=== PATIENT | female | born 1975 | race Caucasian/White ===

== ENCOUNTER 2016-07-25 17:32 | Emergency (ER) | payer BC, OTHER ==
[~2016-07-25] VITALS: Ht 165.1 cm; Wt 64.7 kg
[~2016-07-25 17:32] MED LIST: ALPR-411 PO; ESZO1TAB6 PO; OXYC-57 PO
[2016-07-25 17:36] VITALS: TEMP 36.8; Ht 165.1 cm; Wt 64.7 kg
--- NOTE | 2016-07-25 17:53 | EMERGENCY ROOM VISIT NOTE ---
History Report prepared by Susana: Antoni Torres Under the Supervision of: Clay MonacoO. First contact with patient: 17:42 Chief Complaint: ABDOMINAL PAIN Stated Complaint: L SIDE LOWER ABD PAIN History of Present Illness The patient is a 40 year old female who presents to the Emergency Room with complaints of constant left lower abdominal pain that started today. The pain is worse with movement. She has not taken anything for pain. The pain does not radiate to her back. The patient has a history of ovarian cysts on the left side , which felt the same as the pain she is complaining of today. The patient states that she had a cyst on the left ovary that was "the size of a baby's head." She denies fevers, chills, cough cold or flu symptoms, changes in urinary or bowel habits, or abnormal vaginal discharge. The patient is s/p partial hysterectomy. The patient was sexually active last night with her and had no pain during intercourse. She denies recent travel or strenuous exercise. The patient has adverse reactions to morphine and Percocet. Source of History: patient Onset: today Position: abdomen (LLQ) Timing: constant Modifying Factors (Worsening): movement Associated Symptoms: No fevers, No chills, No cough, No back pain Review of Systems See HPI for pertinent positives & negatives. A total of 10 systems reviewed and were otherwise negative. Past Medical & Surgical Medical Problems: (1) Hx of breast reduction Surgical Problems: (1) Hx of appendectomy (2) Hx of section (3) Hx of hysterectomy Family History No pertinent family history Social History Smoking Status: Former Smoker Marital Status: Housing Status: lives with family Occupation Status: employed Current/Historical Medications Scheduled Sertraline (Zoloft), 75 MG PO DAILY Zolpidem Tartrate (Ambien), 5 MG PO HS Scheduled PRN Alprazolam (Xanax), 0.5 MG PO Q6H PRN for ANXIETY Hydrocodone/Acetaminophen 5MG/325MG ([place] 5MG/325MG), 1-2 TABS PO Q6H PRN for Pain Allergies Coded Allergies: Acetaminophen (Verified Allergy, Severe, "VIOLENT VOMITTING"-"SHAKE UNCONTROLLABLY", 07/25/16) Oxycodone (Verified Allergy, Severe, "VIOLENT VOMITTING"-"SHAKE UNCONTROLLABLY", 07/25/16) Penicillins (Verified Allergy, Severe, ANAPHYLAXIS, 07/25/16) Morphine (Verified Allergy, Intermediate, HIVES, 07/25/16) Physical Exam Vital Signs Date Time Temp Pulse Resp B/P (MAP) Pulse Ox O2 Delivery O2 Flow Rate FiO2 07/25/16 20:49 65 18 98/59 97 Room Air 07/25/16 18:59 88 18 126/78 99 Room Air 07/25/16 17:36 36.8 88 18 133/89 99 Room Air Physical Exam GENERAL: Mild to moderate distress, sitting with knees flexed for comfort. EYE EXAM: normal conjunctiva. OROPHARYNX: no exudate, no erythema, lips, buccal mucosa, and tongue normal and mucous membranes are moist NECK: supple, no nuchal rigidity, no adenopathy, non-tender LUNGS: Clear to auscultation. Normal chest wall mechanics HEART: no murmurs, S1 normal and S2 normal ABDOMEN: There is left lower quadrant tenderness to palpation. BACK: Back is symmetrical on inspection and there is no deformity, no midline tenderness, no CVA tenderness. SKIN: no rashes and no bruising UPPER EXTREMITIES: upper extremities are grossly normal. LOWER EXTREMITIES: No pitting edema. NEURO EXAM: Normal sensorium, cranial nerves II-XII grossly intact, normal speech, no gross weakness of arms, no gross weakness of legs. Gross sensation intact. Medical Decision & Procedures ER Provider Diagnostic Interpretation: Radiology results have been interpreted by the radiologist and reviewed by me. PELVIC ULTRASOUND, TRANSABDOMINAL AND TRANSVAGINAL HISTORY: Left lower quadrant pain. COMPARISON: None. FINDINGS: Uterus: Surgically absent. No masses or fluid collections at the vaginal cuff. Right ovary: Normal in size and demonstrates normal color flow. There are few small follicles/cysts. There is also 1.5 x 0.9 cm paraovarian cyst. Left ovary: Normal in size and demonstrates normal color flow. A 2.1 cm slightly complex cyst which favors a corpus luteum. The left ovary was only seen transabdominally. Miscellaneous:No pelvic free fluid. IMPRESSION: 1. Hysterectomy. 2. A 1.5 x 0.9 cm right paraovarian cyst. 3. A 2.1 cm slightly complex cyst within the left ovary. This favors a corpus luteum. Electronically signed by: Guerrero Flores M.D. 07/25/2016 7:05 PM Dictated Date/Time: 07/25/2016 7:02 PM Laboratory Results 07/25/16 17:55 Red Blood Count 4.99, Mean Corpuscular Volume 88.6, Mean Corpuscular Hemoglobin 29.9, Mean Corpuscular Hemoglobin Concent 33.7, Mean Platelet Volume 9.7, Neutrophils (%) (Auto) 57.7, Lymphocytes (%) (Auto) 34.9, Monocytes (%) (Auto) 5.2, Eosinophils (%) (Auto) 1.6, Basophils (%) (Auto) 0.3, Neutrophils # (Auto) 6.71, Lymphocytes # (Auto) 4.06, Monocytes # (Auto) 0.60, Eosinophils # (Auto) 0.19, Basophils # (Auto) 0.03 07/25/16 17:55 Test 07/25/16 17:50 07/25/16 17:55 Urine Color YELLOW Urine Appearance CLEAR (CLEAR) Urine pH 6.5 (4.5-7.5) Urine Specific [place] 1.010 (1.000-1.030) Urine Protein NEG (NEG) Urine Glucose (UA) NEG (NEG) Urine Ketones NEG (NEG) Urine Occult Blood TRACE (NEG) Urine Nitrite NEG (NEG) Urine Bilirubin NEG (NEG) Urine Urobilinogen NEG (NEG) Urine Leukocyte Esterase NEG (NEG) Urine WBC (Auto) 0 /hpf (0-5) Urine RBC (Auto) 0-4 /hpf (0-4) Urine Hyaline Casts (Auto) 1-5 /lpf (0-5) Urine Epithelial Cells (Auto) >30 /lpf (0-5) Urine Bacteria (Auto) 1+ (NEG) White Blood Count 11.62 K/uL (4.8-10.8) Red Blood Count 4.99 M/uL (4.2-5.4) Hemoglobin 14.9 g/dL (12.0-16.0) Hematocrit 44.2 % (37-47) Mean Corpuscular Volume 88.6 fL (80-100) Mean Corpuscular Hemoglobin 29.9 pg (25-34) Mean Corpuscular Hemoglobin Concent 33.7 g/dl (32-36) Platelet Count 228 K/uL (130-400) Mean Platelet Volume 9.7 fL (7.4-10.4) Neutrophils (%) (Auto) 57.7 % Lymphocytes (%) (Auto) 34.9 % Monocytes (%) (Auto) 5.2 % Eosinophils (%) (Auto) 1.6 % Basophils (%) (Auto) 0.3 % Neutrophils # (Auto) 6.71 K/uL (1.4-6.5) Lymphocytes # (Auto) 4.06 K/uL (1.2-3.4) Monocytes # (Auto) 0.60 K/uL (0.11-0.59) Eosinophils # (Auto) 0.19 K/uL (0-0.5) Basophils # (Auto) 0.03 K/uL (0-0.2) RDW Standard Deviation 43.2 fL (36.4-46.3) RDW Coefficient of Variation 13.4 % (11.5-14.5) Immature Granulocyte % (Auto) 0.3 % Immature Granulocyte # (Auto) 0.03 K/uL (0.00-0.02) Anion Gap 9.0 mmol/L (3-11) Est Creatinine Clear Calc Drug Dose 70.9 ml/min Estimated GFR () 87.3 Estimated GFR (Non- 75.4 BUN/Creatinine Ratio 6.8 (10-20) Calcium Level 8.7 mg/dl (8.5-10.1) Date/Time Source Procedure Growth Status 07/25/16 17:50 Urine , Clean Catch Urine Culture - Final THREE TYPES OF ORGANISMS PRESENT, ALL... Complete Laboratory results per my review. Medications Administered Medications (Trade) Dose Ordered Sig/Richard Route Start Time Stop Time Status Last Admin Dose Admin Hydromorphone HCl (Dilaudid Inj) 0.5 mg NOW STAT IV 07/25/16 17:54 07/25/16 17:56 DC 07/25/16 18:11 0.5 MG Sodium Chloride 1,000 ml @ 999 mls/hr Q1H1M STAT IV 07/25/16 17:54 07/25/16 18:54 DC 07/25/16 18:11 999 MLS/HR Hydromorphone HCl (Dilaudid Inj) 1 mg NOW STAT IV 07/25/16 18:24 07/25/16 18:25 DC 6/20/17 18:33 1 MG Ketorolac Tromethamine (Toradol Inj) 30 mg NOW STAT IV 07/25/16 20:17 07/25/16 20:18 DC 07/25/16 20:48 30 MG Acetaminophen/ Hydrocodone Bitart ([place] 5/325 Tab) 1 tab NOW STAT PO 07/25/16 20:17 07/25/16 20:18 DC 07/25/16 20:48 1 TAB ED Course 1747: The patient was evaluated in room A4b. A complete history and physical exam was performed. 1753: NSS 1000 ml @ 999 mls/hr, Dilaudid 0.5 mg IV. 1823: Dilaudid 1 mg IV. 2009: Reassessed the patient. The patient is still in pain. Updated her on the results and discussed the plan with her. 2017: [place] 5/325 mg PO, Toradol 30 mg IV. Medical Decision Differential diagnoses includes but is not limited to gastritis, peptic ulcer disease, GERD, gallbladder disease, pancreatitis, small bowel obstruction, acute coronary syndrome, pericarditis, ischemic bowel, irritable bowel disease, irritable bowel syndrome, appendicitis, diverticulitis, malignancy, hernia, urinary tract infection, ovarian cyst, torsion, perforation, trauma, infectious. Blood pressure screening: Patient was found to have an elevated blood pressure and was referred to their primary doctor for recheck and further treatment. Medication Reconciliation: I attest that I have personally reviewed the patient' s current medication list. Doubt additional GI/ pathology, sx consistent with prior episodes. Labs reassuring, mild leukocytosis likely from pain. Doubt PID/TOA, no evidence of torsion. Pain improved here. Discussed f/u with aquatics lifeguard, sx to watch/return for , she verbalized understanding and was agreeable with plan. Impression Primary Impression: Abdominal pain Additional Impression: Ovarian cyst Scribe Attestation The scribe's documentation has been prepared under my direction and personally reviewed by me in its entirety. I confirm that the note above accurately reflects all work, treatment, procedures, and medical decision making performed by me. Departure Information Dispostion Home / Self-Care Prescriptions Hydrocodone/Acetaminophen 5MG/325MG ([place] 5MG/325MG) Tab 1-2 TABS PO Q6H Y for Pain, #20 TAB Prov: Leticia Alcaraz, DO 07/25/16 Referrals Shelton Conti D.O. (PCP) Forms Call Back Authorization, HOME CARE DOCUMENTATION FORM, IMPORTANT VISIT INFORMATION Patient Instructions [facility] Additional Instructions Please follow up with QA MANAGER as a precaution given her history of ovarian cysts and significant pain this evening. Please drink plenty of water, you may continue using anti-inflammatories such as Advil or Aleve at home. Please use the pain medications carefully, and do not drive or you're taking them. Please also monitor for constipation which is a common side effect. If you develop any worsening pain, develop fevers or chills, vomiting, vaginal bleeding or abnormal discharge, difficulty urinating, notice a change in your bowel movements, or have any other new concerns, please return the emergency room. Problem Qualifiers Primary Impression: Abdominal pain Abdominal location: left lower quadrant Qualified Codes: R10.32 - Left lower quadrant pain
[2016-07-25] MEDS ORDERED: HYDROmorphone INJ 0.5 MG/0.5 ML SYR IV STA ×2 (17:54→18:24)
[2016-07-25] MEDS ORDERED: SODIUM CHLORIDE 0.9% 1000ML 1,000 ML IV STA (17:54)
[2016-07-25] MEDS ORDERED: SERT50TA PO (17:59)
[2016-07-25] MEDS ORDERED: ZOLP5TAB PO (17:59)
[2016-07-25 18:09] LABS: BASO % 0.3 %; BASO ABS # 0.03 K/uL (0-0.2); COMPLETE YES; EOS % 1.6 %; HEMATOCRIT 44.2 % (37-47); IG% 0.3 %; LYMPH % 34.9 %; LYMPH ABS # 4.06 K/uL (1.2-3.4); MEAN CELL VOLUME 88.6 fL (80-100); MEAN CORPUSCULAR HEMOGLOBIN 29.9 pg (25-34); MEAN CORPUSCULAR HGB CONC 33.7 g/dl (32-36); MEAN PLATELET VOLUME 9.7 fL (7.4-10.4); MONO % 5.2 %; NEUT % 57.7 %; PLATELET COUNT 228 K/uL (130-400); RED BLOOD COUNT 4.99 M/uL (4.2-5.4); WHITE BLOOD COUNT 11.62 K/uL (4.8-10.8)
[2016-07-25 18:17] LABS: URINE APPEARANCE CLEAR (CLEAR); URINE BILIRUBIN NEG (NEG); URINE COLOR YELLOW; URINE EPITHELIAL CELL AUTO >30 /lpf (0-5); URINE NITRITE NEG (NEG); URINE PH 6.5 (4.5-7.5); UROBILINOGEN NEG (NEG); ZZUR CULT IF INDIC CLEAN CATCH YES
[2016-07-25 18:21] LABS: MANUAL MICROSCOPIC REQUIRED? NO; REVIEW REQ? NO
[2016-07-25 18:28] LABS: BUN/CREATININE RATIO 6.8 (10-20); CALCIUM 8.7 mg/dl (8.5-10.1); CREATININE 0.94 mg/dl (0.60-1.20); POTASSIUM 3.6 mmol/L (3.5-5.1)
--- NOTE | 2016-07-25 19:06 | DIAGNOSTIC IMAGING REPORT ---
PELVIC ULTRASOUND, TRANSABDOMINAL AND TRANSVAGINAL HISTORY: Left lower quadrant pain. COMPARISON: None. FINDINGS: Uterus: Surgically absent. No masses or fluid collections at the vaginal cuff. Right ovary: Normal in size and demonstrates normal color flow. There are few small follicles/cysts. There is also 1.5 x 0.9 cm paraovarian cyst. Left ovary: Normal in size and demonstrates normal color flow. A 2.1 cm slightly complex cyst which favors a corpus luteum. The left ovary was only seen transabdominally. Miscellaneous:No pelvic free fluid. IMPRESSION: 1. Hysterectomy. 2. A 1.5 x 0.9 cm right paraovarian cyst. 3. A 2.1 cm slightly complex cyst within the left ovary. This favors a corpus luteum. Electronically signed by: Guerrero Flores M.D. 07/25/2016 7:05 PM Dictated Date/Time: 07/25/2016 7:02 PM
[2016-07-25] MEDS ORDERED: HYDROCODONE/ACETAMOPHEN 5/325MG TAB PO STA (20:17)
[2016-07-25] MEDS ORDERED: KETOROLAC TROMETHAMINE 30 MG/ML VIAL IV STA (20:17)
[2016-07-25] MEDS ORDERED: HYDR-5688 PO (20:26)
[2016-07-25 20:49] VITALS: BP 98/59; PULSE 65; O2SAT 97
[2016-09-29] MEDS ORDERED: HYDR-5688 PO (13:24)
[2016-09-29] MEDS ORDERED: IBUP600T44 PO (13:24)
== END 2016-07-25 21:10 | disposition home or self-care (01) ==
LOC: C.EDB 17:32 → C.EDA 21:10
DX: R10.32 Left lower quadrant pain (principal); N83.01 Follicular cyst of right ovary; N83.202 Unspecified ovarian cyst, left side; Z90.710 Acquired absence of both cervix and uterus; Z98.890 Other specified postprocedural states; Z87.891 Personal history of nicotine dependence; Z79.899 Other long term (current) drug therapy; Z88.0 Allergy status to penicillin; Z88.5 Allergy status to narcotic agent; Z88.6 Allergy status to analgesic agent

== ENCOUNTER 2016-08-02 18:51 | Emergency (ER) | payer BC, OTHER ==
[~2016-08-02] VITALS: Ht 165.1 cm; Wt 65.0 kg
[~2016-08-02 18:51] MED LIST changes: -ESZO1TAB6 PO; +HYDR-5688 PO; -OXYC-57 PO; +SERT50TA PO; +ZOLP5TAB PO
[2016-08-02 18:56] VITALS: TEMP 36.7; Ht 165.1 cm; Wt 65.0 kg
[2016-08-02] MEDS ORDERED: ONDANSETRON INJ 2 MG/ML 2 ML VIAL IV STA (19:22)
[2016-08-02] MEDS ORDERED: KETOROLAC TROMETHAMINE 30 MG/ML VIAL IV STA (19:22)
[2016-08-02 19:34] LABS: URINE APPEARANCE CLEAR (CLEAR); URINE BILIRUBIN NEG (NEG); URINE COLOR YELLOW; URINE EPITHELIAL CELL AUTO >30 /lpf (0-5); URINE NITRITE NEG (NEG); URINE SPECIFIC GRAVITY 1.013 (1.000-1.030); UROBILINOGEN NEG (NEG)
[2016-08-02 19:39] LABS: MANUAL MICROSCOPIC REQUIRED? NO; REVIEW REQ? NO
[2016-08-02 19:58] LABS: BASO % 0.3 %; BASO ABS # 0.03 K/uL (0-0.2); COMPLETE YES; EOS % 2.8 %; HEMATOCRIT 46.4 % (37-47); IG% 0.2 %; LYMPH % 33.1 %; LYMPH ABS # 3.97 K/uL (1.2-3.4); MEAN CELL VOLUME 86.6 fL (80-100); MEAN CORPUSCULAR HEMOGLOBIN 28.9 pg (25-34); MEAN CORPUSCULAR HGB CONC 33.4 g/dl (32-36); MEAN PLATELET VOLUME 9.4 fL (7.4-10.4); MONO % 5.3 %; NEUT % 58.3 %; PLATELET COUNT 237 K/uL (130-400); RED BLOOD COUNT 5.36 M/uL (4.2-5.4); WHITE BLOOD COUNT 11.98 K/uL (4.8-10.8)
[2016-08-02] MEDS ORDERED: CALC3OIN TOP (20:12)
[2016-08-02] MEDS ORDERED: NAPR500T3 PO (20:12)
[2016-08-02] MEDS ORDERED: ZOLP10TA6 PO (20:12)
[2016-08-02] MEDS ORDERED: ALPR-411 PO (20:12)
[2016-08-02] MEDS ORDERED: ZLF/50 PO (20:12)
[2016-08-02 20:15] LABS: ALT/SGPT 75 U/L (12-78); BLOOD UREA NITROGEN 11 mg/dl (7-18); CALCIUM 9.8 mg/dl (8.5-10.1); CARBON DIOXIDE 27 mmol/L (21-32); CHLORIDE 103 mmol/L (98-107); GLUCOSE 97 mg/dl (70-99); POTASSIUM 4.2 mmol/L (3.5-5.1); SODIUM 136 mmol/L (136-145)
[2016-08-02 20:18] LABS: ALKALINE PHOSPHATASE 101 U/L (45-117); AST/SGOT 45 U/L (15-37)
--- NOTE | 2016-08-02 20:48 | DIAGNOSTIC IMAGING REPORT ---
ABDOMEN AND PELVIS CT WITHOUT CONTRAST CT DOSE: 597.07 mGy.cm HISTORY: lower abd pain eval for stone TECHNIQUE: Multiaxial CT images of the abdomen and pelvis were performed without the use of intravenous and oral contrast according to the standard department stone protocol. COMPARISON STUDY: Pelvic ultrasound 07/25/2016. FINDINGS: The lung bases are clear. No fractures within the visualized osseous structures. The unenhanced liver, spleen, gallbladder, pancreas, adrenal glands, and kidneys are unremarkable. No hydronephrosis. No renal or ureteral stones. Punctate calcification anterior to the right psoas muscle on image 92 appears to be associated with the right ovarian vein. The bladder is unremarkable. Hysterectomy. There is again noted a 2.6 cm slightly complex cyst within the left ovary. Normal right ovary. Suboptimal evaluation for bowel pathology due to the lack of intravenous and oral contrast. However, there is no definite bowel wall thickening or obstruction. The appendix is surgically absent. IMPRESSION: 1. No renal stones or hydronephrosis. 2. No definite bowel wall thickening or obstruction. 3. There is again noted a 2.6 cm slightly complex left ovarian cyst. 4. Hysterectomy. Electronically signed by: Guerrero Flores M.D. 08/02/2016 8:47 PM Dictated Date/Time: 08/02/2016 8:37 PM
[2016-08-02] MEDS ORDERED: HYDROmorphone INJ 1 MG/ML SYR IV STA (21:19)
[2016-08-02 22:27] VITALS: BP 121/84; PULSE 74; O2SAT 98
--- NOTE | 2016-08-02 23:24 | EMERGENCY ROOM VISIT NOTE ---
History Report prepared by Susana: Norma Barone Under the Supervision of: Dr. Allan Chambers M.D. First contact with patient: 19:08 Chief Complaint: PELVIC PAIN Stated Complaint: OVARIAN CYST, PAIN WORSE History of Present Illness The patient is a 40 year old female who presents to the Emergency Room with complaints of persistent pelvic pain starting 1 week ago. She was diagnosed with ovarian cysts 1 week ago. She is still having pain. At that time, she had more pain on her left side. Today at work she started experiencing a sharp pulling and twinging on her right side. She describes her pain as sharp and cramping. She saw her PCP on Sunday and has been taking naproxen, Tylenol, and hydrocodone to no significant relief. She denies any vomiting, fever, diarrhea, vaginal discharge, vaginal bleeding, problems urinating, or hematuria. She has had a hysterectomy and appendectomy. She still has her gallbladder. Source of History: patient Onset: 1 week ago Position: other (pelvic) Quality: sharp, cramping Timing: other (persistent) Associated Symptoms: No fevers, No vomiting, No diarrhea, No urinary symptoms Note: Pt denies vaginal bleeding, vaginal discharge. Review of Systems See HPI for pertinent positives & negatives. A total of 10 systems reviewed and were otherwise negative. Past Medical & Surgical Medical Problems: (1) Hx of breast reduction Surgical Problems: (1) Hx of appendectomy (2) Hx of section (3) Hx of hysterectomy Family History Cancer Diabetes mellitus Heart disease Hypertension Lung disease Seizures Social History Smoking Status: Never Smoker Marital Status: Housing Status: lives with family Occupation Status: employed Current/Historical Medications Scheduled Calcitriol (Topical) (Vectical), 1 APPLN TOP UD Sertraline HCl (Sertraline HCl), 75 MG PO DAILY Scheduled PRN Alprazolam (Alprazolam), 0.5 MG PO TID PRN for Anxiety Naproxen (Naproxen), 500 MG PO BID PRN for Pain Zolpidem Tartrate (Zolpidem Tartrate), 10 MG PO HS PRN for Sleep Allergies Coded Allergies: Oxycodone (Verified Allergy, Severe, "VIOLENT VOMITTING"-"SHAKE UNCONTROLLABLY", 07/25/16) Penicillins (Verified Allergy, Severe, ANAPHYLAXIS, 07/25/16) Morphine (Verified Allergy, Intermediate, HIVES, 07/25/16) Sulfa Antibiotics (Verified Allergy, Intermediate, Vomiting, 08/02/16) Physical Exam Vital Signs Date Time Temp Pulse Resp B/P (MAP) Pulse Ox O2 Delivery O2 Flow Rate FiO2 08/02/16 22:27 74 18 121/84 98 08/02/16 21:33 84 16 115/73 96 Room Air 08/02/16 19:46 74 16 117/77 96 Room Air 08/02/16 18:56 36.7 80 16 133/88 97 Room Air Physical Exam Constitutional: Vital signs reviewed. Eyes: Pupils are equal round reactive to light. Conjunctiva are noninjected. ENT: Pharynx is clear without erythema or exudate. Mucous membranes are moist. Neck supple without meningeal signs. Respiratory: Clear to auscultation bilaterally. Breath sounds are equal bilaterally. Cardiovascular: Regular rate and rhythm. No rubs or gallops. GI: Soft, nondistended with RLQ tenderness. No guarding. Bowel sounds are present. Musculoskeletal: No peripheral edema. No CVA tenderness. Integumentary: No cyanosis. Neurological: The patient is awake and alert. No focal deficits. Psychiatric: Normal affect. Medical Decision & Procedures ER Provider Diagnostic Interpretation: Radiology results as stated below per my review and the radiologist's interpretation: ABDOMEN AND PELVIS CT WITHOUT CONTRAST CT DOSE: 597.07 mGy.cm HISTORY: lower abd pain eval for stone TECHNIQUE: Multiaxial CT images of the abdomen and pelvis were performed without the use of intravenous and oral contrast according to the standard department stone protocol. COMPARISON STUDY: Pelvic ultrasound 07/25/2016. FINDINGS: The lung bases are clear. No fractures within the visualized osseous structures. The unenhanced liver, spleen, gallbladder, pancreas, adrenal glands, and kidneys are unremarkable. No hydronephrosis. No renal or ureteral stones. Punctate calcification anterior to the right psoas muscle on image 92 appears to be associated with the right ovarian vein. The bladder is unremarkable. Hysterectomy. There is again noted a 2.6 cm slightly complex cyst within the left ovary. Normal right ovary. Suboptimal evaluation for bowel pathology due to the lack of intravenous and oral contrast. However, there is no definite bowel wall thickening or obstruction. The appendix is surgically absent. IMPRESSION: 1. No renal stones or hydronephrosis. 2. No definite bowel wall thickening or obstruction. 3. There is again noted a 2.6 cm slightly complex left ovarian cyst. 4. Hysterectomy. Electronically signed by: Guerrero Flores M.D. 08/02/2016 8:47 PM Dictated Date/Time: 08/02/2016 8:37 PM Laboratory Results 08/02/16 19:48 Red Blood Count 5.36, Mean Corpuscular Volume 86.6, Mean Corpuscular Hemoglobin 28.9, Mean Corpuscular Hemoglobin Concent 33.4, Mean Platelet Volume 9.4, Neutrophils (%) (Auto) 58.3, Lymphocytes (%) (Auto) 33.1, Monocytes (%) (Auto) 5.3, Eosinophils (%) (Auto) 2.8, Basophils (%) (Auto) 0.3, Neutrophils # (Auto) 6.99, Lymphocytes # (Auto) 3.97, Monocytes # (Auto) 0.64, Eosinophils # (Auto) 0.33, Basophils # (Auto) 0.03 08/02/16 19:48 Test 08/02/16 19:10 08/02/16 19:48 Urine Color YELLOW Urine Appearance CLEAR (CLEAR) Urine pH 6.0 (4.5-7.5) Urine Specific [place] 1.013 (1.000-1.030) Urine Protein NEG (NEG) Urine Glucose (UA) NEG (NEG) Urine Ketones NEG (NEG) Urine Occult Blood 1+ (NEG) Urine Nitrite NEG (NEG) Urine Bilirubin NEG (NEG) Urine Urobilinogen NEG (NEG) Urine Leukocyte Esterase NEG (NEG) Urine WBC (Auto) 1-5 /hpf (0-5) Urine RBC (Auto) 5-10 /hpf (0-4) Urine Hyaline Casts (Auto) 1-5 /lpf (0-5) Urine Epithelial Cells (Auto) >30 /lpf (0-5) Urine Bacteria (Auto) 1+ (NEG) White Blood Count 11.98 K/uL (4.8-10.8) Red Blood Count 5.36 M/uL (4.2-5.4) Hemoglobin 15.5 g/dL (12.0-16.0) Hematocrit 46.4 % (37-47) Mean Corpuscular Volume 86.6 fL (80-100) Mean Corpuscular Hemoglobin 28.9 pg (25-34) Mean Corpuscular Hemoglobin Concent 33.4 g/dl (32-36) Platelet Count 237 K/uL (130-400) Mean Platelet Volume 9.4 fL (7.4-10.4) Neutrophils (%) (Auto) 58.3 % Lymphocytes (%) (Auto) 33.1 % Monocytes (%) (Auto) 5.3 % Eosinophils (%) (Auto) 2.8 % Basophils (%) (Auto) 0.3 % Neutrophils # (Auto) 6.99 K/uL (1.4-6.5) Lymphocytes # (Auto) 3.97 K/uL (1.2-3.4) Monocytes # (Auto) 0.64 K/uL (0.11-0.59) Eosinophils # (Auto) 0.33 K/uL (0-0.5) Basophils # (Auto) 0.03 K/uL (0-0.2) RDW Standard Deviation 42.8 fL (36.4-46.3) RDW Coefficient of Variation 13.7 % (11.5-14.5) Immature Granulocyte % (Auto) 0.2 % Immature Granulocyte # (Auto) 0.02 K/uL (0.00-0.02) Anion Gap 6.0 mmol/L (3-11) Est Creatinine Clear Calc Drug Dose 66.6 ml/min Estimated GFR () 81.0 Estimated GFR (Non- 69.9 BUN/Creatinine Ratio 11.0 (10-20) Calcium Level 9.8 mg/dl (8.5-10.1) Total Bilirubin 0.2 mg/dl (0.2-1) Direct Bilirubin < 0.1 mg/dl (0-0.2) Aspartate Amino Transf (AST/SGOT) 45 U/L (15-37) Alanine Aminotransferase (ALT/SGPT) 75 U/L (12-78) Alkaline Phosphatase 101 U/L (45-117) Total Protein 7.9 gm/dl (6.4-8.2) Albumin 4.1 gm/dl (3.4-5.0) Lipase 141 U/L (73-393) Laboratory results as reviewed by me. Medications Administered Medications (Trade) Dose Ordered Sig/Richard Route Start Time Stop Time Status Last Admin Dose Admin Ondansetron HCl (Zofran Inj) 4 mg NOW STAT IV 08/02/16 19:22 08/02/16 19:24 DC 08/02/16 19:45 4 MG Ketorolac Tromethamine (Toradol Inj) 10 mg NOW STAT IV 08/02/16 19:22 08/02/16 19:24 DC 08/02/16 19:45 10 MG Hydromorphone HCl (Dilaudid Inj) 0.5 mg NOW STAT IV 08/02/16 21:19 08/02/16 21:20 DC 08/02/16 21:27 0.5 MG ED Course 1909: The patient was evaluated in room C2B. A complete history and physical exam was performed. 1921: Toradol Inj 10 mg IV, Zofran Inj 4 mg IV. 2115: The patient requests something else for pain. 2118: Dilaudid Inj 0.5 mg IV. 2119: Upon reevaluation, the patient appeared to have improvement of her symptoms. I discussed angle's findings with her and advised her to follow up with gynecology. She verbalized agreement of the treatment plan. She was discharged home. Medical Decision This is a 40-year-old female who presents with lower abdominal pain. Differential diagnosis includes ovarian cyst, torsion, kidney stone, UTI, pyelonephritis, irritable bowel syndrome, mass. I did perform a limited focused review of portions of the patient's old chart on the electronic medical record. The patient was here July 25 for lower abdominal pain on the left side. Pelvic ultrasound showed a right paraovarian cyst and a complex cyst in the left ovary. Medication Reconciliation: I attest that I have personally reviewed the patient' s current medication list. Blood Pressure Screening: Patient was found to have an elevated blood pressure and was referred to their primary doctor for recheck and further treatment. I did evaluate the patient as noted above. IV access was established. I did treat the patient with Zofran and Toradol IV. She did have persistent pain and was given Dilaudid 0.5 mg IV. I did order and personally review the patient's urine analysis as described above. I did order and review the patient's blood work as noted in the electronic medical record. Her white blood cell count is minimally elevated. I did order a CT of the abdomen and pelvis. I did review the images myself as well as the radiology report as described above. There is no evidence of acute abnormality in the abdomen or pelvis. She does have a persistent left ovarian cyst. The right ovary appeared normal. Her pain is mostly on the right side. I did reevaluate the patient. She does not appear uncomfortable. I do not suspect ovarian torsion at this time. I did recommend , however, that she follow closely with her 3d artist for further evaluation of her symptoms. She was discharged in good condition. Impression Primary Impression: Pelvic pain Scribe Attestation The scribe's documentation has been prepared under my direct and personally reviewed by me in its entirety. I confirm that the note above accurately reflects all work, treatment, procedures, and medical decision making performed by me. Departure Information Dispostion Home / Self-Care Referrals Shelton Conti, Mar[place].O. (PCP) Forms HOME CARE DOCUMENTATION FORM, IMPORTANT VISIT INFORMATION, WORK / SCHOOL INSTRUCTIONS Patient Instructions ED Pelvic Pain [facility], [facility] Additional Instructions You have been examined and treated today on an emergency basis only. This is not a substitute for, or an effort to provide, complete comprehensive medical care. It is impossible to recognize and treat all injuries or illnesses in a single emergency department visit. It is therefore important that you follow up closely with your 3d artist. Call as soon as possible for an appointment. Return for worsening symptoms or if you develop fever, vomiting, or any other concerning symptoms.
[2016-09-29] MEDS ORDERED: HYDR-5688 PO (13:24)
[2016-09-29] MEDS ORDERED: IBUP600T44 PO (13:24)
== END 2016-08-02 22:28 | disposition home or self-care (01) ==
LOC: C.EDB 18:53 → C.EDC 22:28
DX: R10.2 Pelvic and perineal pain (principal); Z90.710 Acquired absence of both cervix and uterus; Z98.890 Other specified postprocedural states; Z79.899 Other long term (current) drug therapy; Z88.0 Allergy status to penicillin; Z88.2 Allergy status to sulfonamides; Z88.5 Allergy status to narcotic agent; Z80.9 Family history of malignant neoplasm, unspecified; Z83.3 Family history of diabetes mellitus; Z82.49 Family history of ischemic heart disease and other diseases of the circulatory system; Z82.0 Family history of epilepsy and other diseases of the nervous system

== ENCOUNTER 2016-09-29 09:04 | Day surgery (SDC) | payer OTHER, BC ==
[2016-09-08 12:51] VITALS: BMI 24.0
--- NOTE | 2016-09-08 13:27 | PAT Medication Instructions ---
Service Date Sep 08, 2016. Current Home Medication List Alprazolam (Alprazolam), 0.5 MG PO HS PRN for Anxiety Calcitriol (Topical) (Vectical), 1 APPLN TOP UD Naproxen (Naproxen), 500 MG PO BID PRN for Pain Sertraline HCl (Sertraline HCl), 75 MG PO HS Zolpidem Tartrate (Zolpidem Tartrate), 10 MG PO HS PRN for Sleep Medication Instructions For Your Scheduled Surgery - Check with surgeon for instructions: Naproxen (Naproxen), 500 MG PO BID PRN for Pain - Hold the following medications 24 hours prior to surgery: Calcitriol (Topical) (Vectical), 1 APPLN TOP UD - Take the following medications the morning of surgery with a sip of water: Alprazolam (Alprazolam), 0.5 MG PO HS PRN for Anxiety (if needed) - Take the following medications as scheduled the night before surgery: Sertraline HCl (Sertraline HCl), 75 MG PO HS Alprazolam (Alprazolam), 0.5 MG PO HS PRN for Anxiety (if needed) Zolpidem Tartrate (Zolpidem Tartrate), 10 MG PO HS PRN for Sleep (if needed) If you have any questions please call us at [phone] or [phone] or [phone]
[2016-09-08 14:25] LABS: BASO % 0.4 %; BASO ABS # 0.04 K/uL (0-0.2); COMPLETE YES; EOS % 1.9 %; HEMATOCRIT 44.5 % (37-47); IG% 0.3 %; LYMPH % 34.6 %; LYMPH ABS # 3.55 K/uL (1.2-3.4); MEAN CORPUSCULAR HEMOGLOBIN 29.8 pg (25-34); MEAN CORPUSCULAR HGB CONC 33.5 g/dl (32-36); MEAN PLATELET VOLUME 10.1 fL (7.4-10.4); MONO % 5.5 %; NEUT % 57.3 %; PLATELET COUNT 262 K/uL (130-400); WHITE BLOOD COUNT 10.27 K/uL (4.8-10.8)
[~2016-09-29] VITALS: Ht 165.1 cm; Wt 65.8 kg
[~2016-09-29 09:04] MED LIST changes: +ATROPINE SULFATE 0.1 MG/ML 5ML SYR IV PRN; +CALC3OIN TOP; +CLINDAMYCIN 600 MG/54 ML D5W 50 ML IV SCH; +EpHEDrine SULFATE INJ 50 MG/ML AMP IV PRN; +GENTAMICIN INJ 100 MG in DEXTROSE 5% 100ML 100 ML IV SCH; -HYDR-5688 PO; +LACTATED RINGER'S 1000ML 1,000 ML IV SCH; +NAPR500T3 PO; +ONDANSETRON INJ 2 MG/ML 2 ML VIAL IV PRN; -SERT50TA PO; +ZLF/50 PO; +ZOLP10TA6 PO; -ZOLP5TAB PO
[2016-09-29 09:23] VITALS: BP 109/58; PULSE 68; TEMP 36.6; O2SAT 97; Ht 165.1 cm; Wt 65.8 kg
[2016-09-29] MEDS ORDERED: MIDAZOLAM HCL 1 MG/ML 2ML VIAL ONE (10:30)
[2016-09-29] MEDS ORDERED: FENTANYL CITRATE INJ 50 MCG/1 ML 2 ML VIAL ONE ×2 (10:30→13:24)
[2016-09-29 10:34] LABS: BASO % 0.3 %; BASO ABS # 0.02 K/uL (0-0.2); IG% 0.2 %; LYMPH % 43.2 %; LYMPH ABS # 2.75 K/uL (1.2-3.4); MEAN CORPUSCULAR HEMOGLOBIN 30.2 pg (25-34); MEAN PLATELET VOLUME 9.6 fL (7.4-10.4); MONO % 5.3 %; PLATELET COUNT 192 K/uL (130-400); WHITE BLOOD COUNT 6.37 K/uL (4.8-10.8)
[2016-09-29 10:38] LABS: COMPLETE YES; MEAN CORPUSCULAR HGB CONC 34.8 g/dl (32-36)
--- NOTE | 2016-09-29 10:43 | History & Physical Bridge Note ---
H&P Re-Evaluation Bridge Note: I have examined the patient, reviewed the History & Physical and in the interval since the performance of the History & Physical I have noted the following changes of clinical significance: No changes noted
[2016-09-29] MEDS ORDERED: BUPIVACAINE 0.5 % 5 MG/1 ML MPF 30ML VIAL ONE (11:19)
[2016-09-29] MEDS ORDERED: PROPOFOL IV EMULSION 10 MG/ML 20 ML VIAL IV ONE (12:42)
[2016-09-29] MEDS ORDERED: LARYING-O-JET KIT (LTA) ONE ×2 (12:42)
[2016-09-29] MEDS ORDERED: EpHEDrine SULFATE 50MG/5ML SYR ONE (12:42)
[2016-09-29] MEDS ORDERED: DEXAMETHASONE SOD INJ 4 MG/ML VIAL ONE (12:42)
[2016-09-29] MEDS ORDERED: LIDOCAINE HCL 2% 2 ML VIAL (20MG/ML) ONE (12:42)
[2016-09-29] MEDS ORDERED: ONDANSETRON INJ 2 MG/ML 2 ML VIAL ONE (12:42)
[2016-09-29] MEDS ORDERED: ROCURONIUM BROMIDE 10 MG/ML 5 ML VIAL IV ONE (12:42)
[2016-09-29] MEDS ORDERED: HYDROCODONE/ACETAMOPHEN 5/325MG TAB PO PRN ×2 (13:15)
[2016-09-29] MEDS ORDERED: KETOROLAC TROMETHAMINE 30 MG/ML VIAL IV. PRN (13:15)
[2016-09-29] MEDS ORDERED: ONDANSETRON INJ 2 MG/ML 2 ML VIAL IV PRN (13:15)
[2016-09-29] MEDS ORDERED: SODIUM CHLORIDE 0.9% 1000ML 1,000 ML IV SCH (13:15)
--- NOTE | 2016-09-29 13:23 | [facility] Post Operative Brief Note ---
Immediate Operative Summary Operative Date Sep 29, 2016. Pre-Operative Diagnosis Chronic Pelvic Pain and Bilateral Ovarian Cysts Post-Operative Diagnosis Chronic Pelvic Pain and Bilateral Ovarian Cysts Procedure(s) Performed Laparoscopic Bilateral Salpingo-Oophorectomy with extensive lysis of adhesions Surgeon Dr. Stas Xiao [employer] Member Surgeon(s) Dr. Trina Carvajal Estimated Blood Loss 20 ml Findings Upon laparoscopic exam there were omental adhesions to the anterior abdominal wall which were carefully cauterized and lysed. Once the adhesions were freed the pelvis was better visualized. It was noted that the omentum was also adhered across the entire anterior pelvic wall acting like a drape covering the posterior cul-de-sac. Once the omental adhesions were cauterized and freed the entire posterior cul-de-sac was able to be visualized and was free from any further adhesions. Bilateral ovaries and tubes were adhered tightly to their associated pelvic side rain. The ovaries and tubes were carefully dissected away from the side rain and removed successfully. Both ovaries and tubes were removed laparoscopically in separate EndoCatch bags and sent to pathology indicating laterality. The rest of the abdomen and pelvis was clear of any pathology. Excellent hemostasis noted. Patient tolerated the surgery well and was sent to recovery with stable vital signs. Fluids (cc crystalloids) 1500 Specimens Permanent Specimen A: Left ovary and fallopian tube B: Right ovary and fallopian tube Drains None Anesthesia General Complication(s) None Disposition Recovery Room / PACU
[2016-09-29] MEDS: FENTANYL CITRATE INJ 50 MCG/1 ML 2 ML VIAL IV PRN ×2 (13:24→13:29)
[2016-09-29] MEDS ORDERED: HYDR-5688 PO (13:24)
[2016-09-29] MEDS ORDERED: IBUP600T44 PO (13:24)
--- NOTE | 2016-09-29 13:26 | Discharge Instructions ---
Discharge Instructions Date of Service Sep 29, 2016. Visit Reason for Visit: Chronic Pelvic Pain, B/L Ovarian Cysts, Hx Tl Discharge Discharge Diagnosis / Problem: S/P laparoscopic BSO and lysis of adhesions Discharge Goals Goal(s): Decrease discomfort Activity Recommendations Activity Limitations: per Instructions/Follow-up section Anesthesia . Post Anesthesia Instructions: If you have had General Anesthesia or IV Sedation: * Do not drive today. * Resume driving when surgeon permits. * Do not make important decisions or sign legal documents today. * Call surgeon for: 1. Temperature elevations greater than 101 degrees F. 2. Uncontrollable pain. 3. Excessive bleeding. 4. Persistent nausea and vomiting. 5. Medication intolerance (nausea, vomiting or rash). * For nausea and vomiting use only clear liquids such as: tea, soda, bouillon until nausea subsides, then gradually increase diet as tolerated. * If you have any concerns or questions, call your surgeon's office. If physician is unavailable and it is an emergency, call 911 or go to the nearest emergency room. . Instructions / Follow-Up Instructions / Follow-Up SPECIAL CARE INSTRUCTIONS: * Check temperature twice daily for one week. Report any elevation over 100.4 degrees Fahrenheit (38.0 degrees Celsius). * Call office in the next few days for return appointment. * You may experience some vaginal spotting and/or bleeding, this is normal for one or two weeks and should not alarm you. * Post-operative discomfort may consist of a sore throat, a "bloated" feeling and pain in the shoulders. These are normal symptoms which usually only last for two or three days. FOLLOW UP VISIT: Keep any scheduled doctor appointments. Diet Recommendations Recommended Home Diet: no limitations, resume previous diet Procedures Procedures Performed: Laparoscopic Bilateral Salpingo-Oophorectomy with extensive lysis of adhesions Pending Studies Studies pending at discharge: no Medical Emergencies . Who to Call and When: Medical Emergencies: If at any time you feel your situation is an emergency, please call 911 immediately. . Non-Emergent Contact Non-Emergency issues call your: Primary Care Provider, Machine Coil Assembler Call Non-Emergent contact if: you have a fever, your pain is not controlled, wound has increased drainage, wound has increased redness, wound has increased pain . . "Provider Documentation" section prepared by Stas Xiao. . [place] Drug Monitoring Program Search Results: no issues identified
[2016-09-29] MEDS ORDERED: NEOSTIGMINE METHYLSULFATE 5 MG/5 ML SYR ONE (13:30)
[2016-09-29] MEDS ORDERED: GLYCOPYRROLATE INJ 0.2 MG/ML VIAL ONE (13:30)
[2016-09-29] MEDS ORDERED: ACETAMINOPHEN 1000 MG/100 ML IV IV ONE ×2 (13:54→14:00)
--- NOTE | 2016-09-29 14:10 | OPERATIVE REPORT ---
DATE OF OPERATION: 09/29/2016 PREOPERATIVE DIAGNOSES: 1. Chronic pelvic pain. 2. Bilateral ovarian cyst. POSTOPERATIVE DIAGNOSES: Same with extensive abdominal and pelvic adhesions. OPERATIVE PROCEDURE: Laparoscopic bilateral salpingo-oophorectomy with extensive lysis of adhesions. SURGEON: Dr. Stas Xiao. DISC RECORDIST: Dr. Trina Carvajal. ANESTHESIA: General. ESTIMATED BLOOD LOSS: 20 mL. IV FLUIDS: 1500 mL crystalloids. URINE OUTPUT: 500 mL clear yellow urine. SPECIMENS: Left ovary and fallopian tube. Right ovary and fallopian tube. DRAINS: None. COMPLICATIONS: None. DISPOSITION: Recovery room. OPERATIVE FINDINGS: Upon laparoscopic exam, there were omental adhesions to the anterior abdominal wall, which were carefully cauterized and lysed. Once the adhesions were freed, the pelvis was better visualized. It was noted that the omentum was also adhered across the entire anterior pelvic wall, acting like a drape covering the posterior cul-de-sac. These adhesions were carefully cauterized and freed. Once they were lyses, the entire posterior cul-de-sac was able to be visualized and was free from any further adhesions. Bilateral ovaries and fallopian tubes were tightly adhered to their associated pelvic side rain. The ovaries and tubes were carefully dissected away from the side rain and removed successfully. The right ovary and tube were placed in EndoCatch bag and removed from the pelvis and sent to pathology. The left ovary and tube was also placed within a separate EndoCatch bag and sent to pathology as well. The rest of the abdomen and pelvis was cleared for any pathology. Excellent hemostasis was noted throughout the entire abdomen and pelvis. The patient tolerated the surgery well and was sent to recovery with stable vital signs. OPERATIVE PROCEDURE IN DETAIL: The patient was taken to the operating room, where general anesthesia was administered. Once anesthesia was found to be adequate, the patient was placed in the dorsal lithotomy position and was prepped and draped in a manner appropriate for the procedure. The bladder was drained of clear yellow urine. Attention was directed towards the abdomen, where 0.5% Marcaine was injected below the umbilicus and an 11-mm skin incision was made in a horizontal fashion below the umbilicus. The fascia was then grasped with Devorah clamps, elevated, and a Veress needle was placed within the abdomen. Normal saline was injected with no fecal content aspirated. Pneumoperitoneum was then created. The Veress needle was then removed and an 11-mm trocar was placed within the abdomen under direct laparoscopic visualization. A second 5-mm skin incision was made on the left side of the abdomen and a 5-mm trocar was placed within the abdomen under direct laparoscopic visualization. A third 11-mm skin incision was made on the right side of the abdomen and a second 11-mm trocar was placed within the abdomen under direct laparoscopic visualization. There were omental adhesions to anterior abdominal wall, which were carefully cauterized and lysed with the LigaSure. Once the adhesions were freed, better visualization of the pelvis was noted. The patient was placed in a steep Trendelenburg position, displacing the bowel away from the pelvis. It was noted that the omentum was adhered to the anterior pelvic wall across the entire pelvis, acting like drape across the posterior cul-de-sac. These adhesions were cauterized and freed. The posterior cul-de-sac was then able to be visualized with no other adhesions noted. Attention was directed towards the left ovary and tube, which was tightly adhered to the ipsilateral side wall. It was pulled away from the pelvis and cauterized and transected away from its attachment points. Once the left ovary and tube were freed, it was placed with inside an EndoCatch bag and removed from the 11-mm trocar incision, intact and sent to pathology. The 11-mm trocar was replaced back within the incision. Attention was then directed towards the right ovary and tube, which was tightly adhered to the wall as well. It was pulled away from the side wall and cauterized and transected away from its attachment points. Once the ovary and tube were removed, they were placed within an EndoCatch bag and removed through the 11-mm trocar as well and sent to pathology. An 11-mm trocar was placed back within its incision on the right side and a thorough examination of the abdomen and pelvis was performed and was irrigated with warm saline solution. All fluid was aspirated. Again, excellent hemostasis was noted. No other pathology was seen. At this point, the procedure was found to be complete. All instruments were removed from the abdomen and as much CO2 gas was allowed to percolate through open cannulas. The cannulas were then removed. The fascia of the 11-mm skin incisions were reapproximated with 0 Vicryl suture in a [id number] interrupted fashion. All 3 skin incisions were then closed with 4-0 Monocryl in a subcuticular fashion. Excellent hemostasis was noted at all 3 incisions. All sponge and instrument counts were found to be correct x2. The patient tolerated the procedure well and was sent to recovery with stable vital signs. I attest to the content of the Intraoperative Record and any orders documented therein. Any exceptions are noted below. MTDD
--- NOTE | 2016-09-29 14:11 | Anesthesiology Progress Note ---
Anesthesia Post Op Note Date & Time Sep 29, 2016 at 14:11 Vital Signs Pain Intensity: 2 Vital Signs Past 12 Hours Date Time Temp Pulse Resp B/P (MAP) Pulse Ox O2 Delivery O2 Flow Rate FiO2 09/29/16 14:00 36.1 59 16 112/71 100 Room Air 09/29/16 13:50 71 16 119/71 97 Room Air 09/29/16 13:40 65 16 113/68 98 Oxymask 10 09/29/16 13:30 65 16 116/75 100 Oxymask 10 09/29/16 13:20 36.0 72 16 124/83 100 Oxymask 10 09/29/16 09:23 36.6 68 18 109/58 (75) 97 Room Air Notes Mental Status: alert / awake / arousable, participated in evaluation Pt Amnestic to Procedure: Yes Nausea / Vomiting: adequately controlled Pain: adequately controlled Airway Patency, RR, SpO2: stable & adequate BP & HR: stable & adequate Hydration State: stable & adequate Anesthetic Complications: no major complications apparent
[2016-09-29 14:15] VITALS: BP 107/67; PULSE 62; TEMP 36.5; O2SAT 95
[2016-09-29 14:55] VITALS: BP 111/61; PULSE 63; TEMP 36.5; O2SAT 97
[2016-09-29 15:45] VITALS: BP 104/60; PULSE 73; TEMP 36.5; O2SAT 96
== END 2016-09-29 16:13 | disposition home or self-care (01) ==
LOC: C.ACU 09:04
PROVIDERS: ATTEND Obstetrics & Gynecology
DX: N83.201 Unspecified ovarian cyst, right side (principal); N83.202 Unspecified ovarian cyst, left side; N73.6 Female pelvic peritoneal adhesions (postinfective); F41.9 Anxiety disorder, unspecified; E03.9 Hypothyroidism, unspecified

== ENCOUNTER 2017-03-31 19:49 | Emergency (ER) | payer OTHER ==
[~2017-03-31] VITALS: Ht 165.1 cm; Wt 69.7 kg
[~2017-03-31 19:49] MED LIST changes: -ALPR-411 PO; -ATROPINE SULFATE 0.1 MG/ML 5ML SYR IV PRN; -CLINDAMYCIN 600 MG/54 ML D5W 50 ML IV SCH; -EpHEDrine SULFATE INJ 50 MG/ML AMP IV PRN; -GENTAMICIN INJ 100 MG in DEXTROSE 5% 100ML 100 ML IV SCH; +HYDR-5688 PO; +IBUP600T44 PO; -LACTATED RINGER'S 1000ML 1,000 ML IV SCH; -NAPR500T3 PO; -ONDANSETRON INJ 2 MG/ML 2 ML VIAL IV PRN; -ZOLP10TA6 PO
[2017-03-31 19:58] VITALS: TEMP 36.7; Ht 165.1 cm; Wt 69.7 kg
[2017-03-31] MEDS ORDERED: LIDOCAINE HCL 2% VISC SOLN 20 ML UDC PO STA (20:08)
[2017-03-31] MEDS ORDERED: ALUMINUM/MAGNESIUM SUSP 30 ML UDC PO STA (20:08)
[2017-03-31] MEDS ORDERED: ALPR-411 PO (20:12)
[2017-03-31] MEDS ORDERED: ZOLP10TA6 PO (20:12)
[2017-03-31 20:41] LABS: BASO % 0.3 %; BASO ABS # 0.04 K/uL (0-0.2); EOS % 2.4 %; EOS ABS # 0.28 K/uL (0-0.5); HEMATOCRIT 44.9 % (37-47); HEMOGLOBIN 15.4 g/dL (12.0-16.0); IG# 0.02 K/uL (0.00-0.02); LYMPH % 30.6 %; LYMPH ABS # 3.54 K/uL (1.2-3.4); MEAN CORPUSCULAR HEMOGLOBIN 29.5 pg (25-34); MEAN CORPUSCULAR HGB CONC 34.3 g/dl (32-36); MEAN PLATELET VOLUME 9.8 fL (7.4-10.4); MONO % 4.1 %; MONO ABS # 0.47 K/uL (0.11-0.59); NEUT % 62.4 %; NEUT ABS # 7.22 K/uL (1.4-6.5); PLATELET COUNT 214 K/uL (130-400); RED CELL DISTRIBUTION WIDTH SD 41.5 fL (36.4-46.3); WHITE BLOOD COUNT 11.57 K/uL (4.8-10.8)
[2017-03-31 20:52] LABS: INR 0.9 (0.9-1.1); PTT PATIENT 28.5 SECONDS (21.0-31.0)
[2017-03-31 21:02] LABS: CALCIUM 8.8 mg/dl (8.5-10.1); CREATININE 0.94 mg/dl (0.60-1.20); POTASSIUM 3.4 mmol/L (3.5-5.1)
[2017-03-31] MEDS ORDERED: [UNRECOGNIZED DRUG - CODE] TOP (21:07)
[2017-03-31] MEDS ORDERED: PRM/3 PO (21:07)
[2017-03-31] MEDS ORDERED: ZLF/100 PO (21:07)
[2017-03-31] MEDS ORDERED: NAPR500T3 PO (21:08)
--- NOTE | 2017-03-31 21:25 | DIAGNOSTIC IMAGING REPORT ---
ABDOMEN 2VIEW W/PA CHEST RTN CLINICAL HISTORY: Abdominal pain COMPARISON STUDY: No previous studies for comparison. FINDINGS: The erect chest reveals no free intraperitoneal air. There is no focal pulmonary consolidation. Erect and supine views the abdomen reveal scattered air-fluid levels. There are no transition zones indicate bowel obstruction. There are no calcifications suspicious for renal calculi. IMPRESSION: 1. Multiple scattered air-fluid levels 2. No evidence of bowel obstruction. No evidence of free air. Electronically signed by: Jassi Jerome M.D. 03/31/2017 9:23 PM Dictated Date/Time: 03/31/2017 9:23 PM
--- NOTE | 2017-03-31 21:47 | DIAGNOSTIC IMAGING REPORT ---
FIVE-VIEW CHEST DURING BARIUM SWALLOW CLINICAL HISTORY: Dysphagia COMPARISON STUDY: March 31, 2017 FINDINGS: 5 images are provided for interpretation. The patient was administered barium. No esophageal masses are visualized. There are no findings to indicate esophageal obstruction. Contrast was visualized within the stomach. There is no barium extravasation. IMPRESSION: 1. No esophageal abnormalities identified Electronically signed by: Jassi Jerome M.D. 03/31/2017 9:45 PM Dictated Date/Time: 03/31/2017 9:44 PM
[2017-03-31 22:30] VITALS: BP 101/71; PULSE 84; O2SAT 96
--- NOTE | 2017-04-01 01:39 | EMERGENCY ROOM VISIT NOTE ---
History Report prepared by Susana: Allan Barron Under the Supervision of: Dr. Allan Chambers M.D. First contact with patient: 20:01 Chief Complaint: SHORTNESS OF BREATH Stated Complaint: HARD TO BREATHE History of Present Illness The patient is a 41 year old female who presents to the Emergency Room with complaints of worsening trouble swallowing for the past 3 days. Patient states that when she eats solid foods it feels like her ribcage expands and that something gets stuck. She denies any problems drinking liquids. She states that she was at [facility] prior to arrival at the ED eating 2 small bites of a prime rib when her symptoms came on. She states that she has associated symptoms of belching and shortness of breath. She states that acid comes up when she belches. Patient states that she has taken Tums for the symptoms. She denies a history of trouble swallowing or heartburn. She denies a family history of trouble swallowing. Patient denies leg swelling, leg pain, vomiting, abdominal pain, and fevers. Patient states that she has normal bowel movements. Pertinent past medical history includes a hysterectomy. Patient states that she sits at work all day doing nothing strenuous. Source of History: patient Onset: 3 days ago Position: other (Global) Symptom Intensity: moderate Quality: other (Difficulty swallowing) Timing: worsening Modifying Factors (Worsening): eating (Solid) Associated Symptoms: No fevers, No vomiting, No abdominal pain Note: Patient denies leg swelling or leg pain. Review of Systems See HPI for pertinent positives & negatives. A total of 10 systems reviewed and were otherwise negative. Past Medical & Surgical Medical Problems: (1) Hx of breast reduction Surgical Problems: (1) Hx of appendectomy (2) Hx of section (3) Hx of hysterectomy Family History Cancer Diabetes mellitus Heart disease Hypertension Lung disease Seizures Social History Smoking Status: Current Every Day Smoker Marital Status: Housing Status: lives with family Occupation Status: employed Current/Historical Medications Scheduled Calcitriol (Topical) (Vectical), 1 APPLN TOP UD Calcitriol (Topical) (Calcitriol), 1 APPLN TOP DAILY Estrogens, Conjugated (Premarin), 0.3 MG PO DAILY Sertraline HCl (Sertraline HCl), 100 MG PO HS Scheduled PRN Alprazolam (Alprazolam), 0.5 MG PO HS PRN for Anxiety Naproxen (Naproxen), 500 MG PO BID PRN for Pain Zolpidem Tartrate (Zolpidem Tartrate), 10 MG PO HS PRN for Sleep Allergies Coded Allergies: Oxycodone (Verified Allergy, Severe, "VIOLENT VOMITTING"-"SHAKE UNCONTROLLABLY", 09/29/16) Penicillins (Verified Allergy, Severe, ANAPHYLAXIS, 09/29/16) Morphine (Verified Allergy, Intermediate, HIVES, 09/29/16) Sulfa Antibiotics (Verified Allergy, Intermediate, Vomiting, 09/29/16) Physical Exam Vital Signs Date Time Temp Pulse Resp B/P (MAP) Pulse Ox O2 Delivery O2 Flow Rate FiO2 03/31/17 22:30 84 18 101/71 96 Room Air 03/31/17 20:48 95 03/31/17 20:25 Room Air 03/31/17 19:58 36.7 102 18 130/73 94 Room Air Physical Exam Constitutional: Vital signs reviewed. Eyes: Pupils are equal round reactive to light. Conjunctiva are noninjected. ENT: Pharynx is clear without erythema or exudate. Mucous membranes are moist. Neck supple without meningeal signs. Respiratory: Clear to auscultation bilaterally. Breath sounds are equal bilaterally. No wheezing or stridor. Cardiovascular: Regular rate and rhythm. No rubs or gallops. GI: Soft, nondistended and nontender. Bowel sounds are present. Musculoskeletal: No peripheral edema. No lower extremity tenderness. Integumentary: No cyanosis. Neurological: The patient is awake and alert. No focal deficits. Psychiatric: Normal affect. Medical Decision & Procedures ER Provider Diagnostic Interpretation: Radiology results as stated below per my review and the radiologist's interpretation: ABDOMEN 2VIEW W/PA CHEST RTN CLINICAL HISTORY: Abdominal pain COMPARISON STUDY: No previous studies for comparison. FINDINGS: The erect chest reveals no free intraperitoneal air. There is no focal pulmonary consolidation. Erect and supine views the abdomen reveal scattered air-fluid levels. There are no transition zones indicate bowel obstruction. There are no calcifications suspicious for renal calculi. IMPRESSION: 1. Multiple scattered air-fluid levels 2. No evidence of bowel obstruction. No evidence of free air. Electronically signed by: Jassi Jerome M.D. 03/31/2017 9:23 PM Dictated Date/Time: 03/31/2017 9:23 PM Laboratory Results 03/31/17 20:31 Red Blood Count 5.22, Mean Corpuscular Volume 86.0, Mean Corpuscular Hemoglobin 29.5, Mean Corpuscular Hemoglobin Concent 34.3, Mean Platelet Volume 9.8, Neutrophils (%) (Auto) 62.4, Lymphocytes (%) (Auto) 30.6, Monocytes (%) (Auto) 4.1, Eosinophils (%) (Auto) 2.4, Basophils (%) (Auto) 0.3, Neutrophils # (Auto) 7.22, Lymphocytes # (Auto) 3.54, Monocytes # (Auto) 0.47, Eosinophils # (Auto) 0.28, Basophils # (Auto) 0.04 03/31/17 20:31 Test 03/31/17 20:31 03/31/17 20:35 White Blood Count 11.57 K/uL (4.8-10.8) Red Blood Count 5.22 M/uL (4.2-5.4) Hemoglobin 15.4 g/dL (12.0-16.0) Hematocrit 44.9 % (37-47) Mean Corpuscular Volume 86.0 fL (80-100) Mean Corpuscular Hemoglobin 29.5 pg (25-34) Mean Corpuscular Hemoglobin Concent 34.3 g/dl (32-36) Platelet Count 214 K/uL (130-400) Mean Platelet Volume 9.8 fL (7.4-10.4) Neutrophils (%) (Auto) 62.4 % Lymphocytes (%) (Auto) 30.6 % Monocytes (%) (Auto) 4.1 % Eosinophils (%) (Auto) 2.4 % Basophils (%) (Auto) 0.3 % Neutrophils # (Auto) 7.22 K/uL (1.4-6.5) Lymphocytes # (Auto) 3.54 K/uL (1.2-3.4) Monocytes # (Auto) 0.47 K/uL (0.11-0.59) Eosinophils # (Auto) 0.28 K/uL (0-0.5) Basophils # (Auto) 0.04 K/uL (0-0.2) RDW Standard Deviation 41.5 fL (36.4-46.3) RDW Coefficient of Variation 13.0 % (11.5-14.5) Immature Granulocyte % (Auto) 0.2 % Immature Granulocyte # (Auto) 0.02 K/uL (0.00-0.02) Prothrombin Time 9.6 SECONDS (9.0-12.0) Prothromb Time International Ratio 0.9 (0.9-1.1) Activated Partial Thromboplast Time 28.5 SECONDS (21.0-31.0) Partial Thromboplastin Ratio 1.1 Anion Gap 6.0 mmol/L (3-11) Est Creatinine Clear Calc Drug Dose 76.4 ml/min Estimated GFR () 86.7 Estimated GFR (Non- 74.8 BUN/Creatinine Ratio 8.8 (10-20) Calcium Level 8.8 mg/dl (8.5-10.1) Bedside D-Dimer 443 ng/mlFEU (0-450) Bedside Troponin I < 0.030 ng/ml (0-0.045) Laboratory results as reviewed by me. Medications Administered Medications (Trade) Dose Ordered Sig/Richard Route Start Time Stop Time Status Last Admin Dose Admin Lidocaine HCl (Viscous Lidocaine 2% Soln) 10 ml NOW STAT PO 03/31/17 20:08 03/31/17 20:10 DC 03/31/17 20:29 10 ML Al Hydroxide/Mg Hydroxide (Maalox Susp) 30 ml NOW STAT PO 03/31/17 20:08 03/31/17 20:10 DC 03/31/17 20:29 30 ML ECG Per My Interpretation Indication: chest pain Rate (beats per minute): 95 Rhythm: normal sinus Findings: no ectopy, other (No evidence of ST elevation, left atrial enlargement, T-wave flattening in percordial leads) ED Course 2004: The patient was evaluated in room B9. A complete history and physical exam was performed. 2007: Maalox Susp 30ml PO and Lidocaine HCl 10ml PO 2117: I discussed the patient's results with her. Patient states that she did not have much relief with the GI cocktail. 2207: Upon reevaluation, the patient appeared to have improvement of her symptoms. I discussed tonight's findings with her. I told her to follow up with Dr. Keyes of Gastroenterology next week. I informed her that Dr. Donohue recommended she be put on a soft diet until he sees her next week. She verbalized agreement of the treatment plan. She was discharged home. Medical Decision This is a 41-year-old female who presents with chest discomfort and difficulty swallowing. Differential diagnosis includes esophageal food impaction, Schatzki 's ring, esophageal stricture, mass, GERD. I did perform a limited focused review of portions of the patient's old chart on the electronic medical record. The patient has had no recent pertinent visits to this hospital. I did evaluate the patient as noted above. The patient is presenting with difficulty swallowing for the past 3 days. She is able to drink liquids and swallow her own saliva but unable to eat soft solids without difficulty. She complains of discomfort in her chest after she ate prime rib today. IV access was established. The patient was placed on a continuous manager cardiac cath. I did order and personally review the patient's 12-lead EKG and abdominal/chest x- ray as described above. I did order and review the patient's blood work as noted in the electronic medical record. D-dimer and troponin are negative. I did order a barium swallow study. I did review the images myself as well as the radiology report as described above. No strictures were noted. I did treat patient with a GI cocktail. I did discuss the case with Dr. Donohue of gastroenterology. He recommended that the patient be placed on a soft diet and he will follow-up with her in the coming week for EGD. I did discuss this with the patient. She was comfortable with this plan. She was discharged in good condition. Medication Reconcilliation Current Medication List: was personally reviewed by me Blood Pressure Screening Patient's blood pressure: Elevated blood pressure Blood pressure disposition: Referred to PCP Consults Time Called: 2205 Consulting Physician: Dr. Donohue - Gastroenterology Returned Call: [address] Donohue of Gastroenterology. We discussed the patient and him results. He states to put the patient on a soft diet and that he will see her next week. The patient will be further evaluated by Dr. Donohue. Impression Primary Impression: Dysphagia Additional Impression: Acute chest pain Scribe Attestation The scribe's documentation has been prepared under my direct and personally reviewed by me in its entirety. I confirm that the note above accurately reflects all work, treatment, procedures, and medical decision making performed by me. Departure Information Dispostion Home / Self-Care Referrals Newhouser, Shelton D., D.O. (PCP) Forms HOME CARE DOCUMENTATION FORM, IMPORTANT VISIT INFORMATION Patient Instructions My [facility] Additional Instructions You have been examined and treated today on an emergency basis only. This is not a substitute for, or an effort to provide, complete comprehensive medical care. It is impossible to recognize and treat all injuries or illnesses in a single emergency department visit. It is therefore important that you follow up closely with Dr. Donohue of gastroenterology. Call as soon as possible for an appointment. Return for worsening symptoms or if you develop fever, vomiting , inability to swallow liquids or any other concerning symptoms. Problem Qualifiers Primary Impression: Dysphagia Dysphagia type: esophageal phase Qualified Codes: R13.10 - Dysphagia, unspecified
== END 2017-03-31 22:31 | disposition home or self-care (01) ==
LOC: C.EDB 19:50
DX: R13.10 Dysphagia, unspecified (principal); R07.9 Chest pain, unspecified; Z83.3 Family history of diabetes mellitus; Z82.49 Family history of ischemic heart disease and other diseases of the circulatory system; Z82.0 Family history of epilepsy and other diseases of the nervous system; F17.200 Nicotine dependence, unspecified, uncomplicated; Z88.0 Allergy status to penicillin; Z88.8 Allergy status to other drugs, medicaments and biological substances; Z88.5 Allergy status to narcotic agent